=== PATIENT | female | born 1970 | race Hispanic/Latino ===

== ENCOUNTER 2023-02-25 01:33 | Emergency (ER) | payer BC ==
[~2023-02-25] VITALS: Ht 152.4 cm; Wt 99.8 kg
[2023-02-25 01:43] VITALS: BP 155/89
[2023-02-25 02:08] LABS: CREATININE 0.7 mg/dL (0.5-1.5); POTASSIUM 3.7 mmol/L (3.5-5.1)
[2023-02-25 02:13] LABS: ALBUMIN 3.8 g/dL (3.5-5.0); TOTAL PROTEIN, SERUM 6.8 g/dL (6.0-8.3)
[2023-02-25 02:30] LABS: BASOPHILS % (AUTO) 0.4 % (0.0-5.0); EOSINOPHILS % (AUTO) 1.8 % (0.0-8.0); HEMATOCRIT 39.8 % (36-48); LYMPHOCYTES % (AUTO) 28.5 % (21.0-51.0); MEAN CORPUSCULAR HEMOGLOBIN 30.6 pg (27.0-33.0); MEAN CORPUSCULAR HGB CONC 34.2 g/dL (32.0-36.0); MEAN CORPUSCULAR VOLUME 89.6 fL (79-99); PLATELET COUNT (AUTO) 204 K/uL (130-400); RED BLOOD CELL COUNT(AUTO) 4.44 MIL/uL (4.00-5.50); RED CELL DISTRIBUTION WIDTH 12.6 % (11.0-15.5); WHITE BLOOD COUNT (AUTO) 9.8 K/uL (4.8-10.8)
[2023-02-25 02:54] LABS: APPEARANCE,URINE CLEAR (CLEAR); BILIRUBIN,URINE NEGATIVE (NEGATIVE); COLOR,URINE COLORLESS (YELLOW); GLUCOSE, URINE (UA) NEGATIVE (NEGATIVE); KETONES,URINE NEGATIVE (NEGATIVE); LEUKOCYTE ESTERASE ,URINE NEGATIVE Leu/uL (NEGATIVE); NITRATE,URINE NEGATIVE (NEGATIVE); OCCULT BLOOD,URINE SMALL (NEGATIVE); PH,URINE 7.5 (5.0-8.0); PROTEIN,URINE NEGATIVE (NEGATIVE); UROBILINOGEN,URINE 0.2 mg/dL (0.2-1.0)
[2023-02-25] MEDS ORDERED: KETOROLAC 30MG VIAL (30MG/ML) IVP ONE (03:00)
[2023-02-25] MEDS ORDERED: 0.9%NACL 1000ML 1,000 ML IV ONE (03:00)
[2023-02-25] MEDS ORDERED: FAMOTIDINE 20MG VIAL IV ONE (03:00)
[2023-02-25 03:24] LABS: BACTERIA,URINE RARE /HPF (None Seen); MUCUS,URINE RARE LPF (None Seen); SQUAMOUS EPITHELIAL CELL,UR RARE /HPF (0-2)
[2023-02-25] MEDS ORDERED: ONDANSETRON 4MG INJ IVP ONE (04:00)
[2023-02-25] MEDS ORDERED: FAMO-136 PO (04:28)
[2023-02-25] MEDS ORDERED: METO-296 PO (04:28)
[2023-02-25] MEDS ORDERED: KETO10 PO (04:28)
[2023-02-25] MEDS ORDERED: TAMS-1 PO (04:28)
== END 2023-02-25 04:45 | disposition home or self-care (01) ==
LOC: EDH 01:33
DX: N20.0 Calculus of kidney (principal); I10 Essential (primary) hypertension; Z88.5 Allergy status to narcotic agent; Z88.8 Allergy status to other drugs, medicaments and biological substances; Z90.49 Acquired absence of other specified parts of digestive tract
CPT/HCPCS: 99284; 74176; 96374; 96375; 96361; 84484; 80053; 83690; 85025; 81001; 81025; 36415; J3490; J7030; J2405; J1885